=== PATIENT | male | born 1975 | race Hispanic/Latino ===

== ENCOUNTER → 2023-10-27 11:01 | Outpatient (CLI) | payer OTHER, SELFPAY ==
[2023-10-27 11:51] LABS: Add Manual Diff / Slide Review NO; Basophils Absolute Auto 0 /uL (0-100); Basophils Percent Auto 0.4 % (0-2); Eosinophils Absolute Auto 200 /uL (0-450); Eosinophils Percent Auto 3.4 % (2-4); Hemoglobin 14.8 g/dL (13.5-17.5); Lymphocytes Absolute Auto 1500 /uL (1100-4500); Lymphocytes Percent Auto 33.2 % (25-40); Mean Corpuscular HGB Conc 35.3 % (30-36); Mean Corpuscular Hemoglobin 31.4 PG (26-34); Monocytes Absolute Auto 500 /uL (0-900); Monocytes Percent Auto 10.3 % (3-14); Neutrophils Absolute Auto 2400 /uL (1500-7000); Neutrophils Percent Auto 52.7 % (50-75); Platelet Count 133 X10^3/uL (150-400); Red Blood Cell Count 4.72 X10^6/uL (4.5-5.9); Red Cell Distribution Width 13.3 % (11.6-14.8); White Blood Cell Count 4.6 X10^3/uL (4.5-11.0)
[2023-10-27 12:04] LABS: Hemoglobin A1C% w Est Avg Glu 4.8 % (4.0-6.0)
[2023-10-27 12:23] LABS: Alanine Aminotransferase 56 IU/L (<50); Albumin 4.3 g/dL (3.5-5.0); Albumin Globulin Ratio 1.7 (1.0-2.8); Alkaline Phosphatase 46 U/L (38-126); Aspartate Aminotransferase 31 IU/L (17-59); BUN Creatinine Ratio 12.8 (6-22); Bilirubin Total 0.6 mg/dL (0.2-1.3); Blood Urea Nitrogen 16 mg/dL (9-20); Calcium 9.9 mg/dL (8.4-10.2); Carbon Dioxide 27 mmol/L (22-32); Chloride 106 mmol/L (98-107); Cholesterol 279 mg/dL (140-199); Estimated Glomerular Filt Rate > 60 mL/min (>60); Globulin 2.6 g/dL (1.7-4.1); Glucose 97 mg/dL (70-100); HDL Cholesterol 43 mg/dL (40-60); HEMOLYSIS < 15 (0-50); LDL Cholesterol Calculated 196 mg/dL (<100); Potassium 4.6 mmol/L (3.4-5.1); Sodium 140 mmol/L (137-145); Total Protein 6.9 g/dL (6.3-8.2); Triglycerides 200 mg/dL (35-150)
[2023-10-27 12:52] LABS: Prostate Specific Antigen 0.398 ng/mL (0.10-4.00)
== END ==
PROVIDERS: PCP Family Medicine; Referring Provider Family Medicine; Visit Provider Family Medicine
DX: Z00.00 Encounter for general adult medical examination without abnormal findings (principal); R73.03 Prediabetes
CPT/HCPCS: 36415; 80053; 80061; 83036; 84153; 85025

== ENCOUNTER 2024-08-25 09:00 | Outpatient (RCR) | payer OTHER, SELFPAY ==
--- NOTE | 2024-07-21 16:14 | PT.OIE ---
Current Diagnoses Other enthesopathies, not elsewhere classified (07/21/24) Past Medical History (Last Reviewed 06/03/24 @ 17:07 by Cory Melgoza DO) Allergies Anxiety Depression Family history of prostate cancer Foot pain Generalized anxiety disorder GERD (gastroesophageal reflux disease) Hearing loss Insomnia Irritable bowel syndrome Seborrheic dermatitis Shift work sleep disorder Shoulder pain Sleep apnea Tendinitis of thumb Tinnitus Wears glasses Past Surgical History (Last Reviewed 06/03/24 @ 17:07 by Cory Melgoza DO) Anesthesia History of bunionectomy (~2022) History of hydrocelectomy (~2004) History of surgery (~2009) Visit Care Team Role Provider Type Cory Melgoza DO Attending Provider Physician Family Provider Primary Care Provider Referring Provider Specialty: Family Practice Address: [address] [place] [address], [facility] Email: [email or web address] Physical Therapy Initial Evaluation PT-OP-A Visit Information Start: 07/17/24 14:37 Freq: Status: Active Protocol: Document 07/21/24 13:48 LRN (Rec: 07/21/24 16:08 LRN Laptop) Out-Patient Physical Therapy Visit Information Visit Information Visit Type Initial Evaluation Visit Start Time 13:48 Visit Stop Time 14:37 Visit Number 1 Evaluation Information Evaluation Date 07/21/24 Precautions Precautions Tennis elbow 10 yrs ago. PT-OP-B Current Condition Start: 07/17/24 14:37 Freq: Status: Active Protocol: Document 07/21/24 13:48 LRN (Rec: 07/21/24 16:08 LRN Laptop) Current Condition History of Current Condition Onset Date 3 months ago Current Complaints Stuck in flexion in the morning & is most painful. History of Current Condition Pt reports L thumb triggering at the IP jt that has been worsening over the past 3 months, first noticed in the morning on waking, now triggers when using hand. He states the L thumb DIP jt gets stuck and is painful at A1 Deepthi, lateral side of the MCP joint. He states he has tried splinting the thumb IP jt once in awhile, but even with the thumb splint he is still getting triggering of the thumb IP jt. States he does exercises with wgts ( squats 3x/wk), but has not really noticed the thumb locking with exercise. He has had instances when his locked thumb has been accidently forcefully extended when caught on an object. Prior Treatments and Tests None. Self purchased metal stay thump splint, that he has not been using because it doesn't keep his thumb from triggering. Treatment Goals Patient/Caregiver Goals Pt goal is: Waking w/o thumb triggering. Reduce trigger prior to ortho referral. (August 14). Pt educated in self care HEP to prevent triggering. 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 Has orthopedic appointment . PT-OP-C Subjective Start: 07/17/24 14:37 Freq: Status: Active Protocol: Document 07/21/24 13:48 LRN (Rec: 07/21/24 16:08 LRN Laptop) Patient Questionnaires Quick Dash- Upper Extremity Quick Dash UE Score 34.09 Quick Dash UE Impairment 20 to 39% Impaired (Score 20- 39) OP-PT Pain Assessment Pain Assessment Grid Paper Pain Assessment Grid Completed Yes Location L thumb IP jt Pain Location Details Palmar side of L IP jt line. Intensity 3 Scale Used Numeric (0 - 10) Description Chronic Frequency Constant L thumb MCP jt Pain Location Details Macias surface, anterolateral MCPjt Intensity 4 Scale Used Numeric (0 - 10) Description Chronic,Tender Frequency Constant PT-OP-F Manual Assessment Start: 07/17/24 14:37 Freq: Status: Active Protocol: Document 07/21/24 13:48 LRN (Rec: 07/21/24 16:08 LRN Laptop) Manual Assessments Joint Mobility Assessment Joint Mobility Assessment Increased PA mobility distal phalanx on proximal phalanx. Increased PA mobility of proximal phalanx on metacarpal . PT-OP-H Neuro Start: 07/17/24 14:37 Freq: Status: Active Protocol: Document 07/21/24 13:48 LRN (Rec: 07/21/24 16:08 LRN Laptop) Sensation Evaluation Gross Sensation Gross Sensation WNL PT-OP-J Posture/Palpation/Skin Start: 07/17/24 14:37 Freq: Status: Active Protocol: Document 07/21/24 13:48 LRN (Rec: 07/21/24 16:08 LR Laptop) Posture Evaluation Position Sitting Head/C-Spine Posture Side Bent Right Comments Posture Comments equal shoulder height, mild forward shoulders. Palpation Assessment Location L hand. Palpation Location L thumb, palmar: MCP jt anterolateral joint line & IP jt line. Palpation Findings Edema,Tenderness PT-OP-K Range of Motion Start: 07/17/24 14:37 Freq: Status: Active Protocol: Document 07/21/24 13:48 LRN (Rec: 07/21/24 16:08 [facility] Laptop) Wrist Goniometric Range of Motion ROM Limitations Wrist Limitations of Range of Motion Soft Tissue Tightness Comments Left: AROM Wrist: Extension ~45 deg's L, 50 deg's R; Flexion ~ 75 deg's L, 80 deg's R. Active bilateral Supination/ Pronation/UD/RD - WNL. Thumb Goniometric Range of Motion Thumb Right Thumb ROM WFL Yes MCP Flexion Active (degrees) 60 IP Flexion Active (degrees) 74 IP Extension Active (degrees) 28 CMC Flexion Active (degrees) 20 Left Thumb ROM WFL No MCP Flexion Active (degrees) 64 IP Flexion Active (degrees) 70 IP Extension Active (degrees) 28 CMC Flexion Active (degrees) 15 PT-OP-M Strength Start: 07/17/24 14:37 Freq: Status: Active Protocol: Document 07/21/24 13:48 LRN (Rec: 07/21/24 16:08 [facility] Laptop) Wrist Strength Wrist Manual Muscle Testing Right Comments 5/5 Left Comments 5/5 Finger/Thumb Strength Finger Manual Muscle Testing Left Extension (thumb C8) 4 Good Comments Fingers 2-5 (DIP & PIP jts): Strength is 5/5 except as indicated above. Right Comments Fingers 2-5 (DIP & PIP jts): Strength is 5/5. Left Thumb Extension (thumb C8) 4 Good Comments Strength is 5/5 except as indicated above. Right Thumb Comments Strength is 5/5. Hand Radiator Core Tester/Pinch Strength Hand Dominance Hand Dominance Right PT-OP-Q Treatments Start: 07/17/24 14:37 Freq: Status: Active Protocol: Document 07/21/24 13:48 LRN (Rec: 07/21/24 16:08 [facility] Laptop) Therapeutic Exercises Sitting Exercises Thumb strengthening Sitting Exercise Name HEP: Manual resisted thumb IP & CMC AB, Ext; Manual Indu MCP jt ext. Side left Resistance Manual Reps/Minutes 5-8x each. Comments Pt weak with extension. Self-Care/Home Management Treatment Education Other Education Discussed results of evaluation, goals, treatment, and plan of care (POC); pt agreeable to evaluation, goals , treatment, and POC. Fit for Oval 8 size for thumb IP jt splint. Educated pt in use of cryotherapy to the thumb IP & MCP jts for inflammation (cold pack and ice massage). 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 PT-OP-T Assessment and Plan Start: 07/17/24 14:37 Freq: Status: Active Protocol: Document 07/21/24 13:48 LRN (Rec: 07/21/24 16:08 LRN Laptop) Physical Therapy Assessment Rehab Potential Rehabilitation Potential Good Evaluation Complexity Number of Personal Factors/Comorbidities 0 Number of Body Systems Impaired 4 or More Clinical Presentation at Evaluation Evolving Impairments Impairments Activity Tolerance,Posture,ROM ,Soft Tissue Mobility,Strength Other Impairments L thumb IP jt triggering Goals Three Impairment L thumb IP jt locking with grasping motion. Short Term Goal (STG) Pt able to demonstrate with education, modified forms of gripping. STG Duration 08/05/24 Longterm Goal (LTG) Decrease L IP jt triggering onset prior to orthopedic evaluation (August 14). LTG Duration 08/12/24 Two Impairment L thumb IP joint locking first in AM Short Term Goal (STG) Pt will be consistent in wearing thumb splint through the night for 4-6 wks to eliminate triggering at the IP jt first in the AM and pt will be educated in proper head/neck posturing for nighttime sleep. STG Duration 08/05/24 Longterm Goal (LTG) Waking w/o thumb triggering with consistent use of thumb splint for 3 wks during the night. LTG Duration 09/04/24 One Impairment Lacks appropriate self care HEP Short Term Goal (STG) Pt consistent with use of modalities (cryotherapy, finger splint) and self STM to decrease onset of L thumb IP jt triggering. 07/21/24: Pt instructed in use of cryotherapy to L thumb throughout his work day and educated pt in ice massage to the thumb. STG Duration 07/29/24 Cds Sales Advisor Goal (LTG) Pt educated in self care HEP of wrist PROM and thumb/finger strengthening (extensors) to prevent triggering. 07/21/24: Pt I/S in thumb extension manual resist at IP & Indu resist at MCP. LTG Duration 08/12/24 Assessment Summary Assessment Pt is a 49 yo male who presents with trigger finger of L thumb IP jt, tenderness of the anterior jt line of the MCP jt, atrophy of L thenar eminence, and weakness of L hand thumb and finger extensors. Pt has orthopedic evaluation scheduled for 08/10. Pt will benefit from skilled physical therapy for therapeutic exercise of L thumb/finger ext strengthening , modified gripping training, education in use of modalities and massage (including self massage) at the thumb joints, and self care to prevent triggering with use of joint splint to limit flexion and triggering. Wrist ROM ex's will be helpful. Physical Therapy Plan Frequency and Duration Frequency of Treatment 1x/Week Duration of treatment (weeks) 6 Plan of Care Start Date 07/21/24 Plan of Care End Date 09/04/24 Therapeutic Interventions Therapeutic Interventions Home Exercise Program,Joint Mobilizations,Manual Therapy, Self-Care/Home Management,Soft Tissue Mobilization, Therapeutic Activities, Therapeutic Exercises Next Visit Focus/Plan Next Note Type Treatment Note Next Visit Plan Check if pt obtained and is using Oval 8 splint. Measure wrist ext arom, and educate in neutral head/neck posturing. Manual STM and self massage: L thumb tendons/pulleys; Therapeutic exercise: L thumb /finger ext & thenar strengthening; Education: modified gripping training, manual JMT as needed, and assess if pt obtained and is consistent with joint splint to limit flexion and triggering. Wrist ROM ex's.
--- NOTE | 2024-07-29 16:15 | PT.OTN ---
Current Diagnoses Other enthesopathies, not elsewhere classified (07/29/24) Physical Therapy Treatment Note PT-OP-A Visit Information Start: 07/17/24 14:37 Freq: Status: Active Protocol: Document 07/29/24 13:45 LRN (Rec: 07/29/24 14:35 LRN Laptop) Out-Patient Physical Therapy Visit Information Visit Information Visit Type Treatment Note Visit Start Time 13:45 Visit Stop Time 14:23 Visit Number 2 PT-OP-B Current Condition Start: 07/17/24 14:37 Freq: Status: Active Protocol: Document 07/21/24 13:48 LRN (Rec: 07/21/24 16:08 LRN Laptop) Current Condition History of Current Condition Onset Date 3 months ago Current Complaints Stuck in flexion in the morning & is most painful. History of Current Condition Pt reports L thumb triggering at the IP jt that has been worsening over the past 3 months, first noticed in the morning on waking, now triggers when using hand. He states the L thumb DIP jt gets stuck and is painful at A1 Bishnu, lateral side of the MCP joint. He states he has tried splinting the thumb IP jt once in awhile, but even with the thumb splint he is still getting triggering of the thumb IP jt. States he does exercises with wgts ( squats 3x/wk), but has not really noticed the thumb locking with exercise. He has had instances when his locked thumb has been accidently forcefully extended when caught on an object. Prior Treatments and Tests None. Self purchased metal stay thump splint, that he has not been using because it doesn't keep his thumb from triggering. Treatment Goals Patient/Caregiver Goals Pt goal is: Waking w/o thumb triggering. Reduce trigger prior to ortho referral. (August 14). Pt educated in self care HEP to prevent triggering. 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 Has orthopedic appointment . PT-OP-C Subjective Start: 07/17/24 14:37 Freq: Status: Active Protocol: Document 07/29/24 13:45 LRN (Rec: 07/29/24 15:52 LRN Laptop) OP-PT Subjective Patient Comments Patient Comments Did get the oval 8 splint that is helping decr triggering onset, but now notices triggering with small flex/ext at L thumb IP jt. PT-OP-F Manual Assessment Start: 07/17/24 14:37 Freq: Status: Active Protocol: Document 07/21/24 13:48 LRN (Rec: 07/21/24 16:08 LRN Laptop) Manual Assessments Joint Mobility Assessment Joint Mobility Assessment Increased PA mobility distal phalanx on proximal phalanx. Increased PA mobility of proximal phalanx on metacarpal . PT-OP-H Neuro Start: 07/17/24 14:37 Freq: Status: Active Protocol: Document 07/21/24 13:48 LRN (Rec: 07/21/24 16:08 LRN Laptop) Sensation Evaluation Gross Sensation Gross Sensation WNL PT-OP-J Posture/Palpation/Skin Start: 07/17/24 14:37 Freq: Status: Active Protocol: Document 07/21/24 13:48 LRN (Rec: 07/21/24 16:08 LRN Laptop) Posture Evaluation Position Sitting Head/C-Spine Posture Side Bent Right Comments Posture Comments equal shoulder height, mild forward shoulders. Palpation Assessment Location L hand. Palpation Location L thumb, palmar: MCP jt anterolateral joint line & IP jt line. Palpation Findings Edema,Tenderness PT-OP-K Range of Motion Start: 07/17/24 14:37 Freq: Status: Active Protocol: Document 07/21/24 13:48 LRN (Rec: 07/21/24 16:08 LRN Laptop) Wrist Goniometric Range of Motion ROM Limitations Wrist Limitations of Range of Motion Soft Tissue Tightness Comments Left: AROM Wrist: Extension ~45 deg's L, 50 deg's R; Flexion ~ 75 deg's L, 80 deg's R. Active bilateral Supination/ Pronation/UD/RD - WNL. Thumb Goniometric Range of Motion Thumb Right Thumb ROM WFL Yes MCP Flexion Active (degrees) 60 IP Flexion Active (degrees) 74 IP Extension Active (degrees) 28 CMC Flexion Active (degrees) 20 Left Thumb ROM WFL No MCP Flexion Active (degrees) 64 IP Flexion Active (degrees) 70 IP Extension Active (degrees) 28 CMC Flexion Active (degrees) 15 PT-OP-M Strength Start: 07/17/24 14:37 Freq: Status: Active Protocol: Document 07/21/24 13:48 LRN (Rec: 07/21/24 16:08 LRN Laptop) Wrist Strength Wrist Manual Muscle Testing Right Comments 5/5 Left Comments 5/5 Finger/Thumb Strength Finger Manual Muscle Testing Left Extension (thumb C8) 4 Good Comments Fingers 2-5 (DIP & PIP jts): Strength is 5/5 except as indicated above. Right Comments Fingers 2-5 (DIP & PIP jts): Strength is 5/5. Left Thumb Extension (thumb C8) 4 Good Comments Strength is 5/5 except as indicated above. Right Thumb Comments Strength is 5/5. Hand Senior Qc Technician/Pinch Strength Hand Dominance Hand Dominance Right PT-OP-Q Treatments Start: 07/17/24 14:37 Freq: Status: Active Protocol: Document 07/29/24 13:45 LRN (Rec: 07/29/24 16:00 LRN Laptop) Therapeutic Exercises Sitting Exercises Thumb IP jt ROM Sitting Exercise Name Flex stretch Side left Reps/Minutes 4' Thumb strengthening Sitting Exercise Name CMC jt motion: Thumb Flex, Ext , AD. Side left Resistance Thumb indu AD, manual resist Ext/Flex Equipment Used Yellow Putty Comments Good tolerance to ex w/o triggering. Manual Therapy Treatment Consent Patient gave verbal consent for manual Yes treatment Soft Tissue Mobilization L Thenar eminence Body Location L Thenar [place] Mobilization Type Strumming,Sustained Pressure Intensity/Depth Moderate Body Position Sitting L thumb Body Location Flexor Tendon with emphasis at A1 Bishnu Mobilization Type Cross-Friction,Sustained Pressure Intensity/Depth Moderate Body Position Sitting Joint Mobilizations Axial traction L thumb Joint MCP jt Direction Axial Body Position Sitting Reps/Duration 2' Taping K-tape L thumb Body Location Volar surface of L thumb Treatment Focus Reducing thumb ext mobility Type of Tape Kinesio Tape Skin Inspection Good Comments Pt reported tape felt like it was limiting hyper ext of thumb at CMC jt. Pt I/S in precautions of wear of K-tape for safe and proper removal in max 5 days, pt agreeable. Self-Care/Home Management Treatment Education Other Education Pt educated in ice massage to thumb for self care pain mgmt. Activities Self-Care/Home Management Activities Pt educated and handout issued for Contrast Bath. PT-OP-R Modalities Start: 07/17/24 14:37 Freq: Status: Active Protocol: Document 07/29/24 13:45 LRN (Rec: 07/29/24 16:13 LRN Laptop) Hot Pack/Cold Pack Treatment Ice Massage Location L thumb MCP jt with K-tape covering Patient Position Sitting Patient Tolerance Good Comments Pt had pain with pressure from ice massage. PT-OP-T Assessment and Plan Start: 07/17/24 14:37 Freq: Status: Active Protocol: Document 07/29/24 13:45 LRN (Rec: 07/29/24 14:35 LRN Laptop) Physical Therapy Assessment Goals Three Impairment L thumb IP jt locking with grasping motion. Short Term Goal (STG) Pt able to demonstrate with education, modified forms of gripping. STG Duration 08/05/24 Senior Care Goal (LTG) Decrease L IP jt triggering onset prior to orthopedic evaluation (August 14). LTG Duration 08/12/24 Two Impairment L thumb IP joint locking first in AM Short Term Goal (STG) Pt will be consistent in wearing thumb splint through the night for 4-6 wks to eliminate triggering at the IP jt first in the AM and pt will be educated in proper head/neck posturing for nighttime sleep. STG Duration 08/05/24 Senior Care Goal (LTG) Waking w/o thumb triggering with consistent use of thumb splint for 3 wks during the night. LTG Duration 09/04/24 One Impairment Lacks appropriate self care HEP Short Term Goal (STG) Pt consistent with use of modalities (cryotherapy, finger splint) and self STM to decrease onset of L thumb IP jt triggering. 07/21/24: Pt instructed in use of cryotherapy to L thumb throughout his work day and educated pt in ice massage to the thumb. 07/29/24: Pt educated in use ice massage and hot/cold therapy for pain mgmt. STG Duration 07/29/24 progressed 07/29/24 Senior Care Goal (LTG) Pt educated in self care HEP of wrist PROM and thumb/finger strengthening (extensors) to prevent triggering. 07/21/24: Pt I/S in thumb extension manual resist at IP & Indu resist at MCP. LTG Duration 08/12/24 Assessment Summary Assessment Pt is a 49 yo male who presents with trigger finger of L thumb IP jt, tenderness of the anterior jt line of the MCP jt, atrophy of L thenar eminence, and weakness of L hand thumb and finger extensors. Today the pt presents with Oval 8 splint for L thumb IP jt, preventing trigger mostly, except sometimes with small motions of IP jt. Pt wearing splint day & night. Pt has hyperext of L thumb IP jt and rigidity of the thumb MCP jt proximally. STM of Thumb flexor tendon decrease tension and STM of thenar eminence helped reduce ms tightness. Pt getting occasional triggering with small flex mvmt of IP jt. Physical Therapy Plan Frequency and Duration Frequency of Treatment 1x/Week Duration of treatment (weeks) 6 Plan of Care Start Date 07/21/24 Plan of Care End Date 09/04/24 Next Visit Focus/Plan Next Note Type Treatment Note Next Visit Plan ReMeasure wrist ext Arom and assess UE neural tension, & educate in neutral head/neck posturing. Check pt's self massage of thumb MCP jt. Assess response to K-tape to L thumb. Cont Manual STM (gentle at A1 Bishnu and with ice massage): L thumb tendons/A1 bishnu; Therapeutic exercise: L thumb /finger ext & thenar strengthening; Wrist ROM ex's. Education: modified gripping training, manual JMT as needed . DC to HEP when pt independent with self care.
--- NOTE | 2024-08-25 17:58 | PT.OTN ---
Current Diagnoses Other enthesopathies, not elsewhere classified (08/25/24) Physical Therapy Treatment Note PT-OP-A Visit Information Start: 07/17/24 14:37 Freq: Status: Active Protocol: Document 08/25/24 09:09 LRN (Rec: 08/25/24 09:53 LRN Laptop) Out-Patient Physical Therapy Visit Information Visit Information Visit Type Treatment Note Visit Start Time 09:09 Visit Stop Time 09:47 Visit Number 4 Evaluation Information Evaluation Date 07/21/24 Precautions Precautions Tennis elbow 10 yrs ago. PT-OP-B Current Condition Start: 07/17/24 14:37 Freq: Status: Active Protocol: Document 07/21/24 13:48 LRN (Rec: 07/21/24 16:08 LRN Laptop) Current Condition History of Current Condition Onset Date 3 months ago Current Complaints Stuck in flexion in the morning & is most painful. History of Current Pt reports L thumb triggering at the IP jt that has Condition been worsening over the past 3 months, first noticed in the morning on waking, now triggers when using hand. He states the L thumb DIP jt gets stuck and is painful at A1 Deepthi, lateral side of the MCP joint. He states he has tried splinting the thumb IP jt once in awhile, but even with the thumb splint he is still getting triggering of the thumb IP jt. States he does exercises with wgts (squats 3x/wk), but has not really noticed the thumb locking with exercise. He has had instances when his locked thumb has been accidently forcefully extended when caught on an object. Prior Treatments and None. Self purchased metal stay thump splint, that he Tests has not been using because it doesn't keep his thumb from triggering. Treatment Goals Patient/Caregiver Pt goal is: Goals Waking w/o thumb triggering. Reduce trigger prior to ortho referral. (August 14). Pt educated in self care HEP to prevent triggering. 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 Effect Therapy/ Has orthopedic appointment 08/14/24. Recovery PT-OP-C Subjective Start: 07/17/24 14:37 Freq: Status: Active Protocol: Document 08/25/24 09:09 LRN (Rec: 08/25/24 09:53 LRN Laptop) OP-PT Subjective Patient Comments Patient Comments 11 days since injection, has helped, triggering is less but is going to decide if surgery in another 10 days. Significant improvement in the last 2-3 days. Patient Questionnaires Quick Dash- Upper Extremity Quick Dash UE Score 18.18 Quick Dash UE 1 to 19% Impaired (Score 1-19) Impairment PT-OP-F Manual Assessment Start: 07/17/24 14:37 Freq: Status: Active Protocol: Document 07/21/24 13:48 LRN (Rec: 07/21/24 16:08 LRN Laptop) Manual Assessments Joint Mobility Assessment Joint Mobility Increased PA mobility distal phalanx on proximal Assessment phalanx. Increased PA mobility of proximal phalanx on metacarpal . PT-OP-H Neuro Start: 07/17/24 14:37 Freq: Status: Active Protocol: Document 07/21/24 13:48 LRN (Rec: 07/21/24 16:08 LRN Laptop) Sensation Evaluation Gross Sensation Gross Sensation WNL PT-OP-J Posture/Palpation/Skin Start: 07/17/24 14:37 Freq: Status: Active Protocol: Document 07/21/24 13:48 LRN (Rec: 07/21/24 16:08 LRN Laptop) Posture Evaluation Position Sitting Head/C-Spine Posture Side Bent Right Comments Posture Comments equal shoulder height, mild forward shoulders. Palpation Assessment Location L hand. Palpation Location L thumb, palmar: MCP jt anterolateral joint line & IP jt line. Palpation Findings Edema,Tenderness PT-OP-K Range of Motion Start: 07/17/24 14:37 Freq: Status: Active Protocol: Document 08/25/24 09:09 LRN (Rec: 08/25/24 09:53 LRN Laptop) Wrist Goniometric Range of Motion Wrist Right Flexion Active ( 83 degrees) Flexion Passive ( 90 degrees) Extension Active ( 65 degrees) Extension Passive ( 90 degrees) Left Flexion Active ( 80 degrees) Flexion Passive ( 90 degrees) Extension Active ( 80 degrees) Extension Passive ( 90 degrees) PT-OP-M Strength Start: 07/17/24 14:37 Freq: Status: Active Protocol: Document 07/21/24 13:48 LRN (Rec: 07/21/24 16:08 LRN Laptop) Wrist Strength Wrist Manual Muscle Testing Right Comments 5/5 Left Comments 5/5 Finger/Thumb Strength Finger Manual Muscle Testing Left Extension (thumb C8) 4 Good Comments Fingers 2-5 (DIP & PIP jts): Strength is 5/5 except as indicated above. Right Comments Fingers 2-5 (DIP & PIP jts): Strength is 5/5. Left Thumb Extension (thumb C8) 4 Good Comments Strength is 5/5 except as indicated above. Right Thumb Comments Strength is 5/5. Hand Director Learning And Development/Pinch Strength Hand Dominance Hand Dominance Right PT-OP-Q Treatments Start: 07/17/24 14:37 Freq: Status: Active Protocol: Document 08/25/24 09:09 LRN (Rec: 08/25/24 09:53 LRN Laptop) Therapeutic Exercises Sitting Exercises Wrist Ext/Flex Sitting Exercise AROM/PROM Name Side bilateral Reps/Minutes 1-2x each Comments ROM taken Wrist ext stretch Side bilateral Reps/Minutes 4' Neuro Re-Education Treatment Other Activities ANKUSH C8 Details ANKUSH C8 treatment Reps/Duration 24' Comments Reduced thumb AB and flex of fingers, and pronation of R forearm. Elbows were ham flexed, head forward. Self-Care/Home Management Treatment Education Other Education Discussed and educated pt in proper sitting posture with use of back support for improving posture and final head/neck positioning of reaching head to ceiling . Encouraged pt to avoid forward head positioning to minimize effects on C8 nerve. Activities Self-Care/Home Issued and reviewed handouts for proper sitting posture Management . Activities PT-OP-R Modalities Start: 07/17/24 14:37 Freq: Status: Active Protocol: Document 07/29/24 13:45 LRN (Rec: 07/29/24 16:13 LRN Laptop) Hot Pack/Cold Pack Treatment Ice Massage Location L thumb MCP jt with K-tape covering Patient Position Sitting Patient Tolerance Good Comments Pt had pain with pressure from ice massage. PT-OP-T Assessment and Plan Start: 07/17/24 14:37 Freq: Status: Active Protocol: Document 08/25/24 09:09 LRN (Rec: 08/25/24 09:53 LRN Laptop) Physical Therapy Assessment Goals Three Impairment L thumb IP jt locking with grasping motion. Short Term Goal (STG Pt able to demonstrate with education, modified forms ) of gripping. 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 08/25/24: S/P corisone injection has reduced triggering significantly and is expecting further reduction in 7-10 more days; therefore pt agreeable to no further therapy needed. Will wait to see outcome of injections, then will consider possible surgical intervention. STG Duration 08/05/24 (08/25/24: NOT MET GOAL) Halfway Goal (LTG) Decrease L IP jt triggering onset prior to orthopedic evaluation (August 14). 08/25/24: No significant change prior to ortho eval . LTG Duration 08/12/24 (08/25/24: NOT MET GOAL) Two Impairment L thumb IP joint locking first in AM Short Term Goal (STG Pt will be consistent in wearing thumb splint through ) the night for 4-6 wks to eliminate triggering at the IP jt first in the AM and pt will be educated in proper head/neck posturing for nighttime sleep. 08/25/24: Still locking (worst) first in the morning, not as painful and resolves more quickly. Sometimes sleeps with splint. IF splints, wakes with symptom free. Educated pt in proper head/neck positioning to reduce involvement at C8 nerve. STG Duration 08/05/24 less triggering if splint worn (08/25/24: NOT MET GOAL) Halfway Goal (LTG) Waking w/o thumb triggering with consistent use of thumb splint for 3 wks during the night. 08/25/24: No thumb triggering if splint worn. Triggers w/o splint worn. LTG Duration 09/04/24 (08/25/24: Improved, pt must use splint to prevent triggering) One Impairment Lacks appropriate self care HEP Short Term Goal (STG Pt consistent with use of modalities (cryotherapy, ) finger splint) and self STM to decrease onset of L thumb IP jt triggering. 07/21/24: Pt instructed in use of cryotherapy to L thumb throughout his work day and educated pt in ice massage to the thumb. 07/29/24: Pt educated in use ice massage and hot/cold therapy for pain mgmt. 08/25/24: Triggering reduced s/p cortisone injection. STG Duration 07/29/24 (08/25/24: NOT MET GOAL w/o cortisone injection) Devops Solutions Architect Goal (LTG) Pt educated in self care HEP of wrist PROM and thumb/ finger strengthening (extensors) to prevent triggering. 07/21/24: Pt I/S in thumb extension manual resist at IP & Indu resist at MCP. 08/05/24: HEP: Ulnar/Radial n glides & finger tendon glides (4 types). LTG Duration 08/12/24 (08/25/24: Partially met goal, early discharge) Assessment Summary Assessment Pt returns after cortisone injection in the L thumb and reduced symptoms of IP jt triggering. Function has improved per UE Quickdash score indicating 18% impairment (initial was 34% impairment). Prior session use of K-tape did not stay on his thumb; therefore the pt didn't notice any changes with use of K-tape. Pt has self care education and home ex's for thumb ext, intrinsic ms ex's and wrist stretch into extension. He has been educated in use of contrast bath and ice for inflammation, self massage of tendons/ joint and proper posturing at nighttime, and in stand/ sitting position. The pt has a thumb joint splint for nighttime to prevent triggering in the morning. He feels confident to continue as instructed/educated and is hoping to continue to see improvement in the next 7- 10 days. After discussion regarding continued therapy it was decided that the pt will be discharged from physical therapy today to his independent self intermediate program. Physical Therapy Plan Discharge Physical Therapy Discharge Comments Thank you for your referral.
== END 2024-09-01 08:42 | disposition home or self-care (01) ==
LOC: PHYS 09:00
PROVIDERS: Family Provider Family Medicine; PCP Family Medicine; Referring Provider Family Medicine; Visit Provider Family Medicine
DX: M77.8 Other enthesopathies, not elsewhere classified (principal)
CPT/HCPCS: 97110; 97112; 97140; 97162; 97535